=== PATIENT | female | born 1945 | race Caucasian/White ===

== ENCOUNTER → 2024-03-31 | Outpatient (CLI) | payer MEDICARE ==
--- NOTE | 2024-03-31 11:32 | CT ---
EXAMINATION TYPE: CT shoulder RT wo con DATE OF EXAM: 03/31/2024 COMPARISON: None. CLINICAL INDICATION: Female, 78 years old with history of Preoperative planning; [facility], preop planning CT DLP: 254.20 mGycm Automated exposure control for dose reduction was used. FINDINGS: There is moderate to severe narrowing and severe capsular hypertrophy at the acromioclavicular joint. There is loss of underlying fat plane suggesting impingement. Correlate clinically. There is narrowing and spurring along the inferior aspect of the glenohumeral joint. There is Walch A2 glenoid morphology. There are 2 small round bony structures measuring around 5 to 6 mm in region of the anterior lateral scapula and coracoid process. There is suspected intra-articular loose ossific body inferiorly measur ing near 5 mm axial image 31 noted. IMPRESSION: As above. [facility], , 03/31/2024 11:29 AM
== END | disposition home or self-care (01) ==
LOC: RADCTMAIN 10:05
PROVIDERS: ATTEND Orthopaedic Surgery Sports Medicine
DX: Z01.818 Encounter for other preprocedural examination (principal); M19.011 Primary osteoarthritis, right shoulder

== ENCOUNTER → 2024-06-03 | Outpatient (CLI) | payer MEDICARE ==
[2024-06-03 12:40] LABS: INR 0.9 (<1.2); Partial Thromboplastin Time 22.9 sec (22.0-30.0); Prothrombin Time 10.4 sec (10.0-12.5)
[2024-06-03 14:56] LABS: MCH 29.4 pg (27.0-32.0); MCHC 30.6 g/dL (32.0-37.0); MCV 95.9 FL (80.0-97.0); Mean Platelet Volume 9.9 FL (9.5-12.2); NRBC Per 100 WBC 0 X 10*3/uL (0.00-0.01); Platelet Count 319 X 10*3/uL (140-440); RBC 5.11 X 10*6/uL (4.10-5.20); RDW 12.8 % (11.5-14.5); WBC 7.07 X 10*3/uL (4.50-10.00)
[2024-06-03 15:05] LABS: ALT 14 U/L (8-44); AST 29 U/L (13-35); Albumin 4.6 g/dL (3.8-4.9); Albumin/Globulin Ratio 2.09 Ratio (1.60-3.17); Alkaline Phosphatase 58 U/L (41-126); BUN/Creat Ratio 24.29 Ratio (12.00-20.00); Carbon Dioxide 26.9 mmol/L (21.6-31.8); Chloride 104 mmol/L (96-109); Globulin 2.2 g/dL (1.6-3.3); Glucose 108 mg/dL (70-110); Potassium 4.7 mmol/L (3.5-5.5); Sodium 142 mmol/L (135-145); Total Bilirubin 0.4 mg/dL (0.3-1.2); Total Protein 6.8 g/dL (6.2-8.2)
== END | disposition home or self-care (01) ==
LOC: LABPAT 11:01
PROVIDERS: ATTEND Orthopaedic Surgery Sports Medicine
DX: Z01.818 Encounter for other preprocedural examination (principal); I51.89 Other ill-defined heart diseases; M19.011 Primary osteoarthritis, right shoulder; R94.31 Abnormal electrocardiogram [ECG] [EKG]; Z22.322 Carrier or suspected carrier of Methicillin resistant Staphylococcus aureus
CPT/HCPCS: 80053; 85027; 85610; 85730; 87070; 93005

== ENCOUNTER 2024-06-09 05:39 | Day surgery (SDC) | payer MEDICARE ==
[2024-06-06 09:00] VITALS: BMI 22.1
[~2024-06-09 05:39] MED LIST: TRANEXAMIC 1,000 MG/100ML-NACL 1,000 MG in SALINE 1 100ML.BAG IVPB PRN
[2024-06-09] MEDS ORDERED: LIDOCAINE 1% (10MG/ML) FOR IV START INTRADERMA PRN (06:14)
[2024-06-09] MEDS: IV FLUID CONTINUATION 1,000 ML IV ONE (06:27)
[2024-06-09] MEDS: MELOXICAM 7.5 MG TAB PO PRN (06:37)
[2024-06-09] MEDS: ACETAMINOPHEN TAB 500 MG TAB PO PRN (06:37)
[2024-06-09] MEDS: GABAPENTIN 300 MG CAP PO PRN (06:37)
[2024-06-09] MEDS: DEXAMETHASONE SOD PHOSPHATE 4 MG/ML 1 ML VIAL IV ONE (06:49)
[2024-06-09] MEDS: ONDANSETRON 4 MG/2 ML VIAL IVP PRN (06:49)
[2024-06-09] MEDS: MIDAZOLAM 2 MG/2 ML VIAL IV ONE (06:49)
[2024-06-09] MEDS ORDERED: HYDROmorphone 0.5 MG/0.5 ML SYRINGE IVP PRN ×4 (07:00→07:50)
[2024-06-09] MEDS ORDERED: TRANEXAMIC 1,000 MG/100ML-NACL PREMIX BAG ONE (07:35)
[2024-06-09] MEDS ORDERED: LIDOCAINE 1% INJ 10MG/ML (20 ML MDV) ONE (07:35)
[2024-06-09] MEDS ORDERED: SUCCINYLCHOLINE CHLORIDE 200 MG/10 ML VIAL IV ONE (07:35)
[2024-06-09] MEDS ORDERED: PROPOFOL 10 MG/ML 20 ML VIAL IV ONE (07:35)
[2024-06-09] MEDS ORDERED: PHENYLEPHRINE 10 MG/ML VIAL ONE (07:35)
[2024-06-09] MEDS ORDERED: DEXAMETHASONE SOD PHOSPHATE 4 MG/ML 1 ML VIAL ONE (07:35)
[2024-06-09] MEDS ORDERED: GLYCOPYRROLATE 0.2 MG/ML 2 ML VIAL ONE (07:35)
[2024-06-09] MEDS ORDERED: ROPIVACAINE 5 MG/ML 30 ML VIAL ONE (07:35)
[2024-06-09] MEDS ORDERED: ONDANSETRON 4 MG/2 ML VIAL IVP PRN (07:50)
[2024-06-09] MEDS ORDERED: SENNOSIDES-DOCUSATE SODIUM 1 EACH TAB PO PRN (07:50)
[2024-06-09] MEDS ORDERED: diphenhydrAMINE 25 MG CAP PO PRN (07:50)
[2024-06-09] MEDS ORDERED: HYDROcodone/APAP 7.5-325MG 1 EACH TAB PO PRN (07:53)
[2024-06-09] MEDS: ceFAZolin 1,000 MG in SODIUM CHLORIDE 0.9% 1,000 ML IRRIGATION ONE (08:11)
[2024-06-09] MEDS: VANCOMYCIN 1,000 MG VIAL MISCELLANE ONE (08:19)
--- NOTE | 2024-06-09 08:55 | P.ANPRN ---
Procedure Note - Anesthesia - Nerve Block Performed Right Interscalene Single Time Out Performed: Yes ([id number]) Date of Procedure: 06/09/24 Procedure Start Time: 06:50 Procedure Stop Time: 06:55 Location of Patient: PreOp Indication: Acute Post-Operative Pain, Requested by Surgeon Specifically requested for management of pain by DrDensie: Triston Carver Sedation Type: Sedate with meaningful contact maintained Preparation: Sterile Prep Position: Supine Catheter: None Needle Types: Pajunk Needle Gauge: 21 Ultrasound used to visualize needle placement: Yes Ultrasound used to observe medication spread: Yes Injectate: 0.5% Ropivacaine (see comment for volume) ([id number]) Blood Aspirated: No Pain Paresthesia on Injection Noted: No Resistance on Injection: Normal Image Stored and Saved: Yes Events: Uneventful and Well Tolerated
--- NOTE | 2024-06-09 10:06 | XR ---
EXAMINATION TYPE: XR shoulder limited RT DATE OF EXAM: 06/09/2024 10:01 AM COMPARISON: None. CLINICAL INDICATION: Female, 78 years old with history of post op, pain TECHNIQUE: XR shoulder limited RT views were obtained FINDINGS: Glenohumeral prosthesis right shoulder appears to be appropriately placed with normal alignment. Post operative soft tissue changes seen. IMPRESSION: As above [facility], , 06/09/2024 10:04 AM
--- NOTE | 2024-06-09 10:17 | OP ---
OPERATIVE REPORT DATE OF SERVICE : 06/09/2024 ASSOCIATE DIRECTOR CAREER SERVICES: ASHLEY Mojica. PREOPERATIVE DIAGNOSIS: Right advanced shoulder osteoarthrosis. POSTOPERATIVE DIAGNOSES: 1. Right shoulder advanced glenohumeral osteoarthrosis. 2. Right shoulder chronic supraspinatus tear. OPERATIONS: Right reverse total shoulder arthroplasty. ANESTHESIA: General endotracheal. ESTIMATED BLOOD LOSS: 100 mL. DRAINS: None. COMPLICATIONS: None apparent. DISPOSITION: To postanesthesia care unit. INDICATIONS: Odalys is a very pleasant 78-year-old female with longstanding right shoulder pain. Workup including x-rays and a CT scan revealed advanced osteoarthrosis of the right shoulder. At this point, it is felt that she has failed conservative management and she would like to proceed with operative intervention. Risks of procedure were discussed with her in detail. These risks include but are not limited to risk of infection, nerve damage, bleeding, pain, instability in the shoulder, loosening of the implants, and deep infection. There was also small risk of deep vein thrombosis, which could lead to fatal pulmonary embolism. The patient understood these risks. All of her questions with regard to the risks of procedure were answered to her satisfaction and an appropriate informed consent was obtained. DESCRIPTION OF PROCEDURE: The patient was identified in the preoperative holding area. Surgical site was marked by both the patient and myself. She was given 2 g of Ancef IV for prophylactic purposes. She was then transferred to the operative suite. She was placed supine in the operating room table. A general anesthetic was administered and dosed per the Anesthesia without apparent complication. An examination under anesthesia was then performed to the right shoulder. She had elevation to 120 degrees, external rotation to the side was 30 degrees. She was then placed into the beach chair position and well-padded in preparation for surgery. Great care was taken to ensure that her cervical spine was in neutral alignment, well-padded and maintained in that way throughout the operative procedure. Great care was taken also to ensure that her legs were appropriately padded as well. The patient's right upper extremity was then prepped and draped in the usual sterile fashion. Standard surgical pause was then undertaken to ensure that we were operating the correct site and that appropriate preoperative antibiotics had been given. All staff in room were in agreement, and we proceeded. The acromion AC joint clavicle and coracoid were marked with a surgical pen. A planned incision starting at the level of the clavicle and extending distally over the deltopectoral interval, approximately 1 cm lateral to the coracoid was marked with a surgical pen. The incision was then made with a 10-blade scalpel. The dissection was carried down sharply to the deltoid fascia. The deltopectoral interval was identified to the level of the clavicle. A small band retractor was then placed onto the proximal deltoid. I then released the deltoid fascia on the lateral aspect of the cephalic vein. The vein was then left in its bed medially. The cephalic vein was then protected throughout the entire case. I then identified the clavipectoral fascia. This was incised proximally to the level of the coracoacromial ligament. The coracoacromial ligament was left intact. I then used my finger to spread the interval between the conjoint tendon and the subscapularis. I felt for the axillary nerve at this point, which was readily palpable. I then cleared the subacromial and subdeltoid spaces of bursal and scar tissue. I then utilized a Brown retractor to hold the deltoid and expose the humeral head. I then proceeded to release the subscapularis in the anterior-inferior shoulder capsule. The rotator cuff was inspected. She did have a chronic supraspinatus tear. The course of the biceps tendon was also identified. I then released the rotator interval. It was released at the base of the coracoid and then out laterally. The subscapularis and capsule were then released intratendinously. The subscapularis and capsule release extended distally in a lazy-S fashion, approximately 1 cm medial to the biceps tendon. We then continued releasing the capsule along the inferior neck in a vertical fashion to approximately at the 6 o'clock position. Great care was taken to ensure that the capsule was always visualized as it was released as to avoid injuring the axillary nerve. I then brought a Boudreaux inventory control analyst with the arm externally rotated and abducted. I continued to release the capsule inferomedially to approximately at the 4 o'clock position. The inferior osteophytes were now removed as well. This was done with a rongeur. I then proceeded with preparation of the humerus. I removed all the goat's stein osteophytes. I then removed the subchondral plate from the superior aspect of the humeral head, utilizing a large rongeur. I then used a starting reamer to gain access to the humeral canal. This was 1 cm medial to the rotator cuff insertion and 1 cm posterior to the bicipital groove. I then prepared the humeral canal with hand reaming. I started with a 6 mm reamer and incrementally increased until firm resistance was encountered at 12 mm. The reamer handle was then left in place. I then utilized a humeral resection guide set at 30 degrees of retrotorsion. Cutting block was then set, approximately 1 mm above the insertion of the rotator cuff. I then proceeded to osteotomize the head with an oscillating saw. I removed the resection guide and then completed the osteotomy. I then proceeded with trial stem placement. I trialed size 12. It was then broached into the canal. The 12 mm trial stem was then left in place. I then inspected the joint. There was an osseous loose body, which was easily removed. At this point, I did release the biceps tendon as well. This was tenotomized at the level of the superior labrum. Given the chronic rotator cuff tear, I made a decision to proceed with a reverse total shoulder arthroplasty. The Bhattman retractor was then placed on the posterior glenoid rim. The arm was then placed in approximately 80 degrees of abduction and in slight flexion on the Boudreaux stand. I then proceeded to remove the hypertrophic labrum to definitively identify the actual glenoid. I then proceeded with the mini base plate guide. The starting pin was then placed just slightly inferior to the center on the glenoid and placed in approximately 10 degrees of inferior tilt. I then proceeded to ream the glenoid fossa with the mini base plate reamer. Reaming was taken down as minimal as possible as to preserve as much subchondral bone as possible. I did place a small posterior superior augment, allowed for nice conforming fit of the base plate. I then had the energy conservation representative open a Audra [employer] mini base plate with a small augment. The augment was then oriented posterior-superior and then, the base plate was then impacted into the actual glenoid. I then measured for the central screw. The central screw measured 30 mm. A 30 mm central screw was then placed. I had excellent purchase in bone. When the screw was fully seated, I was able to rotate the scapula through the screwdriver. The guide was then utilized to ensure that the screw was fully seated. I then proceeded with placement of the peripheral locking screws. All 4 peripheral locking screws were 15 mm locking screws. I then had the energy conservation representative open a 36 mm Glenosphere. Very minimal offset was done. The Cazares taper was dried and then the 36 mm Glenosphere was impacted onto a dry Cazares taper of the base plate. I then checked to ensure that the Glenosphere was fully seated and it was. I then proceeded with trial. A trial with a standard tray and a standard poly. It was slightly loose. I then trialed with a +3 poly which was a mildly difficult reduction, but it was stable throughout a full range of motion. The conjoint tendon did not have any undue tension, and I felt for the axillary nerve at this point, which was readily palpable and seemingly uninjured. I then removed all the trial components. The wound was thoroughly irrigated with sterile saline solution with antibiotic added via pulse lavage. I also used the IrriSept antiseptic solution at this time. I had the energy conservation representative open a Audra [employer]omet mini size 12 stem, a standard tray, and a +3 poly for a 36 mm Glenosphere. I then impacted the real stem into the proximal humerus. A very secure fit. This was done approximately at 30 degrees of retrotorsion. The poly and tray were assembled on the back table. The Cazares taper was dried and then, the tray was impacted onto a dry Cazares taper of the real stem. The shoulder was again reduced. Again, it was a mildly difficult reduction. It was very stable throughout the range of motion. There was minimal Shuck. The conjoint tendon did not have undue tension. At this point, we proceeded with closure. The wound was thoroughly irrigated again with sterile saline solution with antibiotic added via pulse lavage. I used the remaining IrriSept solution for approximately 3 minutes. I then placed 500 mg of vancomycin powder deep. The deltopectoral interval was reapproximated with 0 Vicryl interrupted suture. The subcutaneous tissue was thoroughly irrigated, and then, the remaining 500 mg of vancomycin powder was placed subcutaneously. The subcutaneous tissue was closed with 2-0 Vicryl interrupted suture. The skin was closed with a running 3-0 Quill suture. Dermabond was applied to the incision. A sterile dressing was applied and the patient's right upper extremity was placed into a standard sling. All sponge and needle counts were deemed correct prior to closure. The patient tolerated the procedure without apparent complication. She was transferred to the recovery room in stable condition. LUCILA / HESHAM: [id number] /
[2024-06-09] MEDS: droPERidol 2.5 MG/ML VIAL IVP ONE (12:13)
[2024-06-09] MEDS: LACTATED RINGERS 1,000 ML IV SCH ×2 (12:18→17:49)
--- NOTE | 2024-06-09 13:54 | P.CONS ---
History of Present Illness - Reason for Consult Consult date: 06/09/24 - History of Present Illness Patient is a 78-year-old female with history of hypertension, dyslipidemia, hypothyroidism, GERD presenting for elective right shoulder arthroplasty. [facility] physicians consulted for medical management. Temperature 97.6, pulse 70, respiratory rate 152/82, saturating at 96% on room air. No new labs available. Shoulder x-ray shows postoperative changes. Patient denies any chest pain, shortness of breath, abdominal pain, nausea, vomiting, urinary or bowel complaints. Pertinent positives and negatives as discussed in HPI, a complete review of systems was performed and all other systems are negative. Patient seen and examined at bedside. Vital signs reviewed General: nontoxic, no distress, appears at stated age Derm: warm, dry Head: atraumatic, normocephalic, symmetric Eyes: EOMI, no lid lag, anicteric sclera, pupils equal round reactive to light ENT: Nose and ears atraumatic Neck: No thyromegaly, supple Mouth: no lip lesion, mucus membranes moist Cardiovascular: S1S2 reg, no murmur, no edema Lungs: clear to auscultation bilateral, no rhonchi, no rales, no wheeze, no accessory muscle use Abdominal: soft, nontender to palpation, no guarding, no appreciable organomegaly Ext: no gross muscle atrophy, no contractures, right shoulder in a sling Neuro: CN II-XII grossly intact Psych: Alert, oriented, appropriate affect Assessment/Plan: Active: Status post right shoulder arthroplasty -Pain control, bowel regimen per orthopedic surgery -CBC and BMP tomorrow -Patient on SCDs Hypertension -Continue lisinopril 10 mg daily Hyperlipidemia -Continue atorvastatin 40 nightly GERD -Continue pantoprazole 40 daily Hypothyroidism -Continue levothyroxine 50 mcg daily Thank you for allowing us to participate in the care of this pleasant patient. Do not hesitate to contact us with questions. Someone can be reached from the [facility] hospitalist group all hours of the day at [phone] or via [employer]. Past Medical History Past Medical History: GERD/Reflux, Hyperlipidemia, Hypertension, Osteoarthritis (OA), Skin Disorder, Thyroid Disorder Additional Past Medical History / Comment(s): Dermatitis on face History of Any Multi-Drug Resistant Organisms: None Reported Past Surgical History: Hysterectomy, Orthopedic Surgery Additional Past Surgical History / Comment(s): hand surgery on right hand Past Anesthesia/Blood Transfusion Reactions: No Reported Reaction Smoking Status: Former smoker - Past Family History Father Family Medical History: Cancer Additional Family Medical History / Comment(s): colon Mother Family Medical History: Cancer Additional Family Medical History / Comment(s): breast Medications and Allergies Home Medications Medication Instructions Recorded Confirmed Type Acetaminophen [Tylenol Arthritis] 1,300 mg PO BID 06/06/24 06/09/24 History Calcium Carbonate/Vitamin D3 1 tab PO HS 06/06/24 06/09/24 History [Calcium 600 mg-D3 20 mcg (800 unit)] Ciclopirox Olamine [Ciclopirox 1 applic TOPICAL HS PRN 06/06/24 06/09/24 History 0.77% Topical Susp.] Hydrocortisone Pr Cream 1 applic RECTAL BID 06/06/24 06/09/24 History [Proctosol-Hc 2.5%] Levothyroxine Sodium [Synthroid] 50 mcg PO DAILY 06/06/24 06/09/24 History Loratadine-Pseudoeph 5-120 mg 1 tab PO Q12HR 06/06/24 06/09/24 History [Claritin-D 12 Hour] Pantoprazole Sodium [Protonix] 20 mg PO QAM 06/06/24 06/09/24 History Rosuvastatin [Crestor] 20 mg PO HS 06/06/24 06/09/24 History cycloSPORINE 0.05% OPHTH SOLN 1 applicator BOTH EYES Q12H 06/06/24 06/09/24 History [Restasis] lisinopriL [Zestril] 10 mg PO DAILY 06/06/24 06/09/24 History Allergies Allergy/AdvReac Type Severity Reaction Status Date / Time No Known Allergies Allergy Verified 06/09/24 06:21 Physical Exam Vitals: Vital Signs Temp Pulse Resp BP Pulse Ox 06/09/24 12:21 70 152/82 06/09/24 12:06 69 206/74 06/09/24 11:51 57 L 159/79 06/09/24 11:36 97.6 F 75 18 147/78 06/09/24 11:00 69 16 129/61 97 06/09/24 10:18 61 16 118/60 91 L 06/09/24 10:03 64 16 116/65 93 L 06/09/24 09:47 73 16 132/73 94 L 06/09/24 09:32 69 16 136/73 99 06/09/24 09:17 97 F L 88 12 150/81 99 06/09/24 07:06 60 16 151/71 99 06/09/24 06:42 96.9 F L 64 16 159/72 99 Intake and Output 06/08/24 06/09/24 06/09/24 22:59 06:59 14:59 Intake Total 100 851 Output Total 100 Balance 100 751 Intake: IV 100 851 Output: Estimated Blood Loss 100 Other: Weight 56.4 kg
[2024-06-09] MEDS: HYDROcodone/APAP 7.5-325MG 1 EACH TAB PO PRN (15:20)
[2024-06-09] MEDS: ATORVASTATIN 40 MG TAB PO SCH (21:31)
[2024-06-10] MEDS: LEVOTHYROXINE 50 MCG TAB PO SCH (07:02)
[2024-06-10 08:04] LABS: Basophils # (A) 0.02 X 10*3/uL (0.00-0.10); Basophils % (A) 0.2 %; Eosinophils # (A) 0 X 10*3/uL (0.04-0.35); Eosinophils % (A) 0 %; HCT 32.9 % (37.2-46.3); HGB 10.6 g/dL (12.0-15.0); Lymphocytes # (A) 1.45 X 10*3/uL (0.90-5.00); MCH 30.2 pg (27.0-32.0); MCHC 32.2 g/dL (32.0-37.0); MCV 93.7 FL (80.0-97.0); Mean Platelet Volume 10.1 FL (9.5-12.2); Monocytes # (A) 1.36 X 10*3/uL (0.20-1.00); Monocytes % (A) 13.1 %; NRBC Per 100 WBC 0 X 10*3/uL (0.00-0.01); Neutrophils # (A) 7.49 X 10*3/uL (1.80-7.70); Neutrophils % (A) 72.2 %; Platelet Count 231 X 10*3/uL (140-440); RBC 3.51 X 10*6/uL (4.10-5.20); RDW 12.8 % (11.5-14.5); WBC 10.37 X 10*3/uL (4.50-10.00)
[2024-06-10 08:08] VITALS: TEMP 97.6
[2024-06-10 08:13] LABS: BUN/Creat Ratio 23.14 Ratio (12.00-20.00); Blood Urea Nitrogen 16.2 mg/dL (9.0-27.0); Calcium 8.8 mg/dL (8.7-10.3); Carbon Dioxide 25.3 mmol/L (21.6-31.8); Chloride 106 mmol/L (96-109); Glucose 129 mg/dL (70-110); Potassium 4.3 mmol/L (3.5-5.5); Sodium 140 mmol/L (135-145)
[2024-06-10] MEDS: PANTOPRAZOLE 40 MG TABLET PO SCH (08:41)
[2024-06-10] MEDS: lisinopriL 10 MG TAB PO SCH (08:41)
[2024-06-10 12:20] VITALS: BP 129/59; PULSE 67; RESP 17
--- NOTE | 2024-06-10 14:38 | P.DS ---
Providers Expected date of discharge: 06/10/24 Attending physician: Triston Carver Consults: 06/09/24 07:50 Consult Physician Routine Consulting Provider: Yusuf Mendiola Consult Reason/Comments: post op medical management Do you want consulting provider notified?: Yes Primary care physician: Kayla De Jesus, DO - Discharge Diagnosis(es) (1) Primary osteoarthritis, right shoulder Patient was admitted to the OR on 06/09/24 to undergo a reverse right total shoulder arthroplasty. She had failed conservative measures as an outpatient and desired to proceed with elective surgery after given informed consent. She underwent the above procedure which she tolerated well without complication. Postoperative hospital course has remained without complication. On day of discharge she is afebrile, vital signs stable, labs within acceptable ranges, tolerating by mouth meds and diet, voiding without difficulty, positive flatus, denies abdominal pain or calf pain, pain is controlled on oral pain medication and has no new complaints. Wound is benign, neurovascular status is intact, calves are soft and nontender, abdomen soft and nontender. Review of systems is negative for numbness, tingling, fever, chills, chest pain, shortness of breath, nausea, vomiting, dizziness, headaches, slurred speech or other. Status: Acute Priority: Medium Procedures: Right reverse TSA Patient Condition at Discharge: Good Plan - Discharge Summary Discharge Rx Participant: No New Discharge Prescriptions: New Doxycycline Hyclate 100 mg PO BID #10 tab HYDROcodone/APAP 7.5-325MG [Milton 7.5-325] 1 - 2 tab PO Q6HR PRN #32 tab PRN Reason: Pain Ondansetron [Zofran] 4 mg PO Q8HR PRN #21 tab PRN Reason: Nausea Docusate [Colace] 100 mg PO BID #60 capsule No Action lisinopriL [Zestril] 10 mg PO DAILY Acetaminophen [Tylenol Arthritis] 1,300 mg PO BID cycloSPORINE 0.05% OPHTH SOLN [Restasis] 1 applicator BOTH EYES Q12H Hydrocortisone Pr Cream [Proctosol-Hc 2.5%] 1 applic RECTAL BID Levothyroxine Sodium [Synthroid] 50 mcg PO DAILY Rosuvastatin [Crestor] 20 mg PO HS Pantoprazole Sodium [Protonix] 20 mg PO QAM Ciclopirox Olamine [Ciclopirox 0.77% Topical Susp.] 1 applic TOPICAL HS PRN PRN Reason: Rash Calcium Carbonate/Vitamin D3 [Calcium 600 mg-D3 20 mcg (800 unit)] 1 tab PO HS Loratadine-Pseudoeph 5-120 mg [Claritin-D 12 Hour] 1 tab PO Q12HR Discharge Medication List Acetaminophen [Tylenol Arthritis] 1,300 mg PO BID 06/06/24 [History] Calcium Carbonate/Vitamin D3 [Calcium 600 mg-D3 20 mcg (800 unit)] 1 tab PO HS 06/06/24 [History] Ciclopirox Olamine [Ciclopirox 0.77% Topical Susp.] 1 applic TOPICAL HS PRN 06/06/24 [History] Hydrocortisone Pr Cream [Proctosol-Hc 2.5%] 1 applic RECTAL BID 06/06/24 [History] Levothyroxine Sodium [Synthroid] 50 mcg PO DAILY 06/06/24 [History] Loratadine-Pseudoeph 5-120 mg [Claritin-D 12 Hour] 1 tab PO Q12HR 06/06/24 [History] Pantoprazole Sodium [Protonix] 20 mg PO QAM 06/06/24 [History] Rosuvastatin [Crestor] 20 mg PO HS 06/06/24 [History] cycloSPORINE 0.05% OPHTH SOLN [Restasis] 1 applicator BOTH EYES Q12H 06/06/24 [History] lisinopriL [Zestril] 10 mg PO DAILY 06/06/24 [History] Docusate [Colace] 100 mg PO BID #60 capsule 06/10/24 [Rx] Doxycycline Hyclate 100 mg PO BID #10 tab 06/10/24 [Rx] HYDROcodone/APAP 7.5-325MG [Milton 7.5-325] 1 - 2 tab PO Q6HR PRN #32 tab 06/10/24 [Rx] Ondansetron [Zofran] 4 mg PO Q8HR PRN #21 tab 06/10/24 [Rx] Follow up Appointment(s)/Referral(s): Triston Carver MD [STAFF PHYSICIAN] - 10 Days Activity/Diet/Wound Care/Special Instructions: Maintain sling keep wound clean and dry take meds as directed f/u in office non weight bearing Discharge Disposition: HOME SELF-CARE
== END 2024-06-10 14:09 | disposition home or self-care (01) ==
LOC: OR 05:39 → 4SSUR 11:04 → OR 06-10 14:09
PROVIDERS: ATTEND Orthopaedic Surgery Sports Medicine
DX: M19.011 Primary osteoarthritis, right shoulder (principal); M75.121 Complete rotator cuff tear or rupture of right shoulder, not specified as traumatic; K21.9 Gastro-esophageal reflux disease without esophagitis; E78.5 Hyperlipidemia, unspecified; E03.9 Hypothyroidism, unspecified; I10 Essential (primary) hypertension; Z90.710 Acquired absence of both cervix and uterus; Z01.818 Encounter for other preprocedural examination; Z98.890 Other specified postprocedural states; Z87.891 Personal history of nicotine dependence; Z79.621 Long term (current) use of calcineurin inhibitor; Z79.890 Hormone replacement therapy; Z79.899 Other long term (current) drug therapy
CPT/HCPCS: 64415; 80048; 85025; 73020; 23472; C1776; J2250; J3370; J1100; J0690 ×3; J2405